=== PATIENT | female | born 1965 | race African-American/Black ===

== ENCOUNTER 2017-03-06 04:19 | Emergency (ER) | payer MEDICAID ==
[~2017-03-06] VITALS: Ht 165.1 cm; Wt 54.5 kg
[2017-03-06] MEDS ORDERED: BACITRACIN ZINC OINT UDPKT TOP ONE (05:30)
[2017-03-06] MEDS ORDERED: IPRATROPIUM/ALBUTEROL 0.5-3(2.5)MG/3ML NEB HHN ONE (05:30)
[2017-03-06] MEDS ORDERED: LIDOCAINE HCL 1%/EPI 1:200,000 30 ML VIAL MC ONE (05:30)
[2017-03-06] MEDS ORDERED: TETANUS, DIPHTHERIA, PERTUSSIS VAC/PF 0.5ML (>7YR OLD) IM ONE (05:30)
[2017-03-06] MEDS ORDERED: LORAZEPAM 1MG TABLET PO ONE (06:00)
[2017-03-06 11:30] VITALS: BP 119/74
== END 2017-03-06 12:43 | disposition home or self-care (01) ==
LOC: ER 04:19
PROC: 0CQ1XZZ Repair Lower Lip, External Approach (ICD-10-PCS; principal; 2017-03-06)
DX: S01.511A Laceration without foreign body of lip, initial encounter (principal); Y08.89XA Assault by other specified means, initial encounter; Y93.89 Activity, other specified; Y92.89 Other specified places as the place of occurrence of the external cause; I10 Essential (primary) hypertension; F17.210 Nicotine dependence, cigarettes, uncomplicated; F10.20 Alcohol dependence, uncomplicated
CPT/HCPCS: 12011; 90471; 90715; 94640; 99283; Z7610; J7620

== ENCOUNTER 2018-05-18 09:42 | Inpatient (IN) | payer OTHER ==
[~2018-05-18] VITALS: Ht 167.6 cm; Wt 62.1 kg
[~2018-05-18 09:42] MED LIST: IPRA4AER INH; LEVO250T2 PO
[2018-05-18] MEDS ORDERED: METHYLPREDNISOLONE SOD SUCC 125 MG/2 ML VIAL IV STA (10:33)
[2018-05-18] MEDS ORDERED: ALBUTEROL (0.083%) 2.5MG/3ML NEB HHN STA ×3 (10:33→13:33)
[2018-05-18] MEDS ORDERED: IPRATROPIUM BROMIDE (0.02%) 0.5MG/2.5ML NEB HHN STA (10:33)
[2018-05-18] MEDS ORDERED: KETOROLAC 15MG/ML VIAL IV ONE (10:45)
[2018-05-18 10:56] LABS: BASOPHILS % 0.8 % (0.0-2.0); EOSINOPHILS % 0.2 % (0.0-5.0); HEMATOCRIT. 38.9 % (36.0-48.0); LYMPHOCYTES % 51.9 % (20.0-50.0); MEAN CORPUSCULAR HEMOGLOBIN 31.2 pg (28.0-32.0); MEAN CORPUSCULAR VOLUME 93.8 fL (81.0-99.0); MEAN PLATELET VOLUME 6.8 fl (7.4-10.4); MONOCYTES % 11.8 % (2.0-8.0); NEUTROPHILS % 35.3 % (40.0-76.0); PLATELET 442 x1000/uL (130-400); RED BLOOD CELL COUNT 4.15 mill/uL (4.2-5.4)
[2018-05-18 11:01] LABS: CHLORIDE 103 mEq/L (98-107)
[2018-05-18] MEDS ORDERED: LIDOCAINE HCL/PF 1% 10 MG/ML 5ML VIAL IJ ONE (12:30)
[2018-05-18] MEDS ORDERED: LEVOFLOXACIN 750MG PREMIX 150 ML IV ONE (13:45)
[2018-05-18] MEDS ORDERED: ONDANSETRON HCL 4MG/2ML INJ IV PRN (14:15)
[2018-05-18] MEDS ORDERED: HYDROCODONE/ACETAMINOPHEN 10/325MG TABLET PO PRN (14:15)
[2018-05-18] MEDS ORDERED: HYDROCODONE/ACETAMINOPHEN 5/325MG TABLET PO PRN (14:15)
[2018-05-18] MEDS ORDERED: ACETAMINOPHEN 650MG SUPP PR PRN (14:15)
[2018-05-18] MEDS ORDERED: MAGNESIUM/ALUMINUM HYDROXIDE/SIMETHICONE 30ML UDC PO PRN (14:15)
[2018-05-18] MEDS ORDERED: ACETAMINOPHEN 325MG TABLET PO PRN (14:15)
[2018-05-18] MEDS ORDERED: ACETAMINOPHEN 650MG/20.3ML UDC GT PRN (14:15)
[2018-05-18 15:55] VITALS: BP 113/74
[2018-05-18] MEDS: IPRATROPIUM/ALBUTEROL 0.5-3(2.5)MG/3ML NEB HHN SCH ×2 (17:40→21:07)
[2018-05-18] MEDS ORDERED: PNEUMOCOCCAL 23-VAL P-SAC VAC 0.5 ML IM ONE (19:30)
[2018-05-18 20:00] VITALS: BP 123/73
[2018-05-18] MEDS: METHYLPREDNISOLONE SOD SUCC 40 MG/ML VIAL IV SCH (21:10)
[2018-05-18 21:20] LABS: CLARITY URINE CLOUDY (CLEAR); COLOR URINE YELLOW (YELLOW); KETONES URINE TRACE (NEGATIVE); LEUKOCYTE ESTERASE URINE NEGATIVE (NEGATIVE); NITRITE URINE NEGATIVE (NEGATIVE); OCCULT BLOOD URINE NEGATIVE (NEGATIVE); PROTEIN URINE NEGATIVE (NEGATIVE); SPECIFIC GRAVITY URINE 1.039 (1.005-1.030); UROBILINOGEN URINE 0.2 E.U./dL (0.2-1.0)
[2018-05-18 21:37] LABS: CANNABINOID URINE SCREEN NEGATIVE (NEGATIVE)
[2018-05-18 21:38] LABS: *AMPHETAMINES SCREEN URINE NEGATIVE (NEGATIVE); *BARBITURATES SCREEN URINE NEGATIVE (NEGATIVE); *BENZODIAZEPINES SCREEN URINE NEGATIVE (NEGATIVE); *COCAINE SCREEN URINE PRESUMTIVE POSITIVE (NEGATIVE); METHADONE URINE SCREEN NEGATIVE (NEGATIVE); OPIATES URINE SCREEN PRESUMTIVE POSITIVE (NEGATIVE); PHENCYCLIDINE URINE SCREEN NEGATIVE (NEGATIVE)
[2018-05-18] MEDS ORDERED: METHYLPREDNISOLONE SOD SUCC 125 MG/2 ML VIAL IV SCH (22:00)
[2018-05-19] VITALS: BP 135/84
[2018-05-19 00:03] LABS: CREATINE KINASE 242 IU/L (26-192)
[2018-05-19 00:04] LABS: CREATINE KINASE MB FRACTION 2.2 ng/mL (0.5-3.6)
[2018-05-19] MEDS: IPRATROPIUM/ALBUTEROL 0.5-3(2.5)MG/3ML NEB HHN SCH ×6 (01:16→21:23)
[2018-05-19 04:00] VITALS: BP 125/89
[2018-05-19 05:31] LABS: BASOPHILS % 0.5 % (0.0-2.0); HEMATOCRIT. 36.6 % (36.0-48.0); HEMOGLOBIN. 12.1 g/dL (12.0-16.0); LYMPHOCYTES % 12.2 % (20.0-50.0); MEAN CORPUSCULAR HEMOGLOBIN 31.1 pg (28.0-32.0); MEAN PLATELET VOLUME 7.5 fl (7.4-10.4); MONOCYTES % 5.6 % (2.0-8.0); NEUTROPHILS % 81.7 % (40.0-76.0); PLATELET 401 x1000/uL (130-400); RED CELL DISTRIBUTION WIDTH 16.2 % (11.6-14.6)
[2018-05-19] MEDS: METHYLPREDNISOLONE SOD SUCC 40 MG/ML VIAL IV SCH ×3 (05:39→21:14)
[2018-05-19 06:34] LABS: CHLORIDE 99 mEq/L (98-107)
[2018-05-19 06:56] LABS: CREATINE KINASE 207 IU/L (26-192); LDL CHOLESTEROL 113 mg/dL (5-100)
[2018-05-19 06:57] LABS: CREATINE KINASE MB FRACTION 2.4 ng/mL (0.5-3.6); HDL CHOLESTEROL 101 mg/dL (40-59); T4 FREE 0.68 ng/dL (0.76-1.46)
[2018-05-19 07:45] LABS: BG BASE EXCESS -2.3 mmol/L (-2.0-2.0); BG CARBOXYHEMOGLOBIN 0.2 % (0.5-1.5); BG DEOXYHEMOGLOBIN 2.1 % (0.0-5.0); BG HCO3 ACT 21.3 mmol/L (22.0-26.0); BG METHEMOGLOBIN 0.3 % (0.0-1.5); BG OXYGEN SATURATION 97.9 % (92.0-98.5); BG OXYHEMOGLOBIN 97.4 % (94.0-97.0); BG PCO2 33.2 mmHg (35.0-45.0); BG PH 7.425 (7.350-7.450); BG PO2 107.8 mmHg (75.0-100.0); BG SAMPLE SITE LEFT RADIAL; BG VENT MODE NASAL CANNULA
[2018-05-19 08:00] VITALS: BP 149/93
[2018-05-19] MEDS: NICOTINE 14MG PATCH TD SCH (11:43)
[2018-05-19] MEDS: ASPIRIN 81MG TABLET PO SCH (11:43)
[2018-05-19 12:00] VITALS: BP 128/80
[2018-05-19] MEDS ORDERED: LIDOCAINE HCL/PF 1% 2ML VIAL ONE (13:22)
[2018-05-19] MEDS: DILTIAZEM HCL 30MG TABLET PO SCH ×2 (13:25→21:15)
[2018-05-19] MEDS: LEVOFLOXACIN 500MG PREMIX 100 ML IV SCH (13:25)
[2018-05-19 16:00] VITALS: BP 121/79
[2018-05-19 20:00] VITALS: BP 130/82
[2018-05-19] MEDS ORDERED: ATORVASTATIN CALCIUM 40MG TABLET PO SCH (21:00)
[2018-05-20] VITALS: BP 117/73
[2018-05-20] MEDS: IPRATROPIUM/ALBUTEROL 0.5-3(2.5)MG/3ML NEB HHN SCH ×5 (00:45→15:32)
[2018-05-20 04:00] VITALS: BP 111/78
[2018-05-20] MEDS: METHYLPREDNISOLONE SOD SUCC 40 MG/ML VIAL IV SCH ×2 (05:22→14:31)
[2018-05-20] MEDS: DILTIAZEM HCL 30MG TABLET PO SCH (05:23)
[2018-05-20 06:58] LABS: HEMATOCRIT. 37.9 % (36.0-48.0); HEMOGLOBIN. 12.2 g/dL (12.0-16.0); MEAN CORPUSCULAR HEMOGLOBIN 30.5 pg (28.0-32.0); MEAN CORPUSCULAR VOLUME 94.9 fL (81.0-99.0); MEAN PLATELET VOLUME 7.6 fl (7.4-10.4); PLATELET 456 x1000/uL (130-400); RED BLOOD CELL COUNT 3.99 mill/uL (4.2-5.4); RED CELL DISTRIBUTION WIDTH 16.3 % (11.6-14.6)
[2018-05-20 07:09] LABS: CHLORIDE 98 mEq/L (98-107)
[2018-05-20 07:19] LABS: PHOSPHORUS 3.1 mg/dL (2.5-4.9)
[2018-05-20 08:30] VITALS: BP 123/82
[2018-05-20] MEDS: ASPIRIN 81MG TABLET PO SCH (08:57)
[2018-05-20] MEDS: NICOTINE 14MG PATCH TD SCH (08:58)
[2018-05-20 10:10] LABS: PLATELET ESTIMATE INCREASED
[2018-05-20] MEDS ORDERED: DILTIAZEM HCL 120MG CAPSULE CD 24HR PO SCH (11:45)
[2018-05-20 12:00] VITALS: BP 116/79
[2018-05-20] MEDS: LEVOFLOXACIN 500MG PREMIX 100 ML IV SCH (14:31)
[2018-05-20] MEDS ORDERED: BENZONATATE 100MG CAPSULE PO SCH (16:15)
[2018-05-20 16:30] VITALS: BP 126/82
[2018-05-20] MEDS ORDERED: PREDNISONE 20MG TABLET PO SCH (17:00)
[2018-05-20] MEDS ORDERED: MED4 MT (17:19)
[2018-05-20] MEDS ORDERED: LIP40 PO (17:19)
[2018-05-20] MEDS ORDERED: BENZ100C86 PO (17:19)
[2018-05-20] MEDS ORDERED: DILT120C88 PO (17:19)
[2018-05-20] MEDS ORDERED: LEVO75TA7 MT (17:19)
[2018-05-20] MEDS ORDERED: ASPI-1160 PO (17:19)
[2018-05-20 17:52] VITALS: BP 126/82
[2018-05-20] MEDS ORDERED: BUDESONIDE 0.5MG/2ML NEB HHN SCH (20:00)
== END 2018-05-20 19:50 | disposition home or self-care (01) | DRG 816 ==
LOC: ER 09:42 → 7WST 13:40 → ENRESERV 14:44
PROVIDERS: ADMIT Internal Medicine; ATTEND Internal Medicine
DX: T40.5X1A Poisoning by cocaine, accidental (unintentional), initial encounter (principal); J96.00 Acute respiratory failure, unspecified whether with hypoxia or hypercapnia; J20.8 Acute bronchitis due to other specified organisms; E78.5 Hyperlipidemia, unspecified; F14.10 Cocaine abuse, uncomplicated; F17.210 Nicotine dependence, cigarettes, uncomplicated; I10 Essential (primary) hypertension; F12.10 Cannabis abuse, uncomplicated; E03.9 Hypothyroidism, unspecified; J68.0 Bronchitis and pneumonitis due to chemicals, gases, fumes and vapors; Z79.899 Other long term (current) drug therapy; Z71.6 Tobacco abuse counseling; Z71.51 Drug abuse counseling and surveillance of drug abuser; Y92.89 Other specified places as the place of occurrence of the external cause
CPT/HCPCS: 12005; 36415; 36600; 71045; 73090; 80048; 80053; 80061; 80305; 81003; 82375; 82550; 82553; 82805; 83036; 83690; 83735; 83880; 84100; 84439; 84443; 84481; 84484; 85025; 90732; 93005; 93306; 94640; 94644; 96365; 96375; 97161; 99285; J1885; J1956; J2920; J2930; J3490; J7512; J7611; J7620

== ENCOUNTER 2018-06-01 14:47 | Emergency (ER) | payer OTHER ==
[~2018-06-01] VITALS: Ht 167.6 cm; Wt 64.0 kg
[~2018-06-01 14:47] MED LIST changes: +ASPI-1160 PO; +BENZ100C86 PO; +DILT120C88 PO; -LEVO250T2 PO; +LEVO75TA7 MT; +LIP40 PO; +MED4 MT
[2018-06-01 15:00] VITALS: BP 115/117
== END 2018-06-01 17:30 | disposition left against medical advice (07) ==
LOC: ER 14:47
DX: Z53.21 Procedure and treatment not carried out due to patient leaving prior to being seen by health care provider (principal)